=== PATIENT | male | born 1995 | race Caucasian/White ===

== ENCOUNTER 2020-01-17 20:59 | Emergency (ER) | payer BC ==
[~2020-01-17] VITALS: Ht 185.4 cm; Wt 63.5 kg
[2020-01-17 21:05] VITALS: BP_SYST 140
--- NOTE | 2020-01-17 21:06 | NUR ---
Placed in room 6. Placed on gambling monitor, blood pressure machine and pulse oximeter. To gown for exam. Side rails up.
--- NOTE | 2020-01-17 21:35 | NUR ---
pt a&o x4 c/o of left sided rib pain that started two hours ago. pt reports trouble breathing due to the pain in his ribs. pt states he feels like he just got done running a mile and that is unable to take a deep breath. pt hx of two spontaneous pneumothorax 8 years ago. pt denies SOB.
--- NOTE | 2020-01-17 21:39 | NUR ---
Patient transported to radiology via ambulatory, accompanied by
--- NOTE | 2020-01-17 22:10 | NUR ---
ER Dr. De La Cruz at bedside examining patient.
--- NOTE | 2020-01-17 22:50 | NUR ---
lab at bedside drawing blood.
[2020-01-17 23:01] LABS: BASOPHILS % (AUTO) 0.5 % (0.0-2.0); EOSINOPHILS % (AUTO) 0.8 % (0.0-4.0); HEMATOCRIT 37.7 % (36-54); HEMOGLOBIN 13.2 g/dL (14.0-18.0); LYMPHOCYTES # (AUTO) 1.8 K/uL (1.0-5.5); LYMPHOCYTES % (AUTO) 35.9 % (20.5-51.5); MEAN CORPUSCULAR HEMOGLOBIN 34 pg (27-31); MEAN CORPUSCULAR HGB CONC 35 % (32-36); MEAN CORPUSCULAR VOLUME 98 fL (79.0-98.0); MONOCYTES # (AUTO) 0.5 K/uL (0.0-1.0); MONOCYTES % (AUTO) 9.7 % (1.7-9.3); NEUTROPHILS # (AUTO) 2.7 K/uL (1.8-7.7); NEUTROPHILS % (AUTO) 53.1 % (40.0-70.0); PLATELET COUNT (AUTO) 159 K/uL (130-430); RED BLOOD CELL COUNT(AUTO) 3.84 MIL/uL (4.2-6.2); RED CELL DISTRIBUTION WIDTH 12.4 % (9.0-15.0); WHITE BLOOD COUNT (AUTO) 5.1 K/uL (4.8-10.8)
[2020-01-17 23:11] LABS: ANION GAP 5 (5-15); CALCIUM 9.2 mg/dL (8.4-11.0); CHLORIDE 104 mmol/L (98-107); CREATININE 1.05 mg/dL (0.55-1.30); GLUCOSE 96 mg/dL (70-99); POTASSIUM 3.7 mmol/L (3.5-5.1); SODIUM SERUM 138 mmol/L (136-145); UREA NITROGEN, BLOOD 20 mg/dL (8-21)
[2020-01-17] MEDS ORDERED: IBUPROFEN 600 MG TABLET PO ONE (23:15)
[2020-01-17 23:20] LABS: GFR AFRICAN AMERICAN 110 mL/min (>90)
--- NOTE | 2020-01-17 23:26 | NUR ---
patient tolerated medications well.
[2020-01-17 23:37] VITALS: BP_SYST 132
--- NOTE | 2020-01-17 23:37 | NUR ---
Patient given written and verbal discharge instructions and verbalizes understanding. ER MD discussed with patient the results and treatment provided. Patient in stable condition. ID arm band removed. No Rx given. Patient educated on pain management and to follow up with PMD. Pain Scale 0/10. Opportunity for questions provided and answered. Medication side effect fact sheet provided.
== END 2020-01-17 23:37 | disposition home or self-care (01) ==
LOC: SED 20:59
DX: R07.89 Other chest pain (principal)
CPT/HCPCS: 36415; 71046-TC; 80048; 84484; 85025; 93005; 99285

== ENCOUNTER 2020-02-13 20:49 | Emergency (ER) | payer BC ==
[~2020-02-13] VITALS: Ht 185.4 cm; Wt 63.5 kg
[2020-02-13 20:50] VITALS: BP_SYST 142
--- NOTE | 2020-02-13 20:50 | NUR ---
Pt placed to ER bed 02, to gown, to color television console monitor. Report given to receiving RN.
--- NOTE | 2020-02-13 21:08 | NUR ---
Dr. Macdonald at bedside.
--- NOTE | 2020-02-13 21:20 | NUR ---
PT PRESENTS FROM HOME WITH R SIDED RIB PAIN. PT REPORTS THAT 8 YEARS AGO HE HAD 2 SPONTANEOUS PNEUMOTHORAX. HE REPORTS THAT IT HAS BEEN MILDLY PAINFUL TO INHALE. CURRENTLY REPORTS A 3/10 PAIN LEVEL. HE HAS AN APPT WITH A PULMINOLOGIST ON 02/27 AND RECENTLY HAD A CHEST XRAY. HIS TEMPLER HEAD RECOMMENDED A CT OR MRI SO PT CAME IN THIS EVENING. V/S STABLE, [id number]
--- NOTE | 2020-02-13 21:35 | NUR ---
Patient transported to radiology via AMBULATION, accompanied by STAFF.
[2020-02-13] MEDS ORDERED: KETOROLAC TROMETHAMINE 30 MG VIAL IM ONE (21:45)
[2020-02-13 22:17] VITALS: BP_SYST 147
--- NOTE | 2020-02-13 22:17 | NUR ---
Patient given written and verbal discharge instructions and verbalizes understanding. ER MD discussed with patient the results and treatment provided. Patient in stable condition. ID arm band removed. NO Rx given. Patient educated on pain management and to follow up with PMD. Pain Scale 2/10. Opportunity for questions provided and answered. Medication side effect fact sheet provided.
== END 2020-02-13 22:17 | disposition home or self-care (01) ==
LOC: SED 20:49
DX: R07.81 Pleurodynia (principal); F12.90 Cannabis use, unspecified, uncomplicated; Z87.01 Personal history of pneumonia (recurrent)
CPT/HCPCS: 71250; 93005; 99284; J1885